=== PATIENT | male | born 1975 ===

== ENCOUNTER 2018-09-10 08:53 | Outpatient (CLI) | payer OTHER | END 2018-09-10 08:56 | disposition home or self-care (01) | LOC: SONOGRAMA 08:53 | DX: R10.30 Lower abdominal pain, unspecified (principal); M25.562 Pain in left knee; M25.561 Pain in right knee ==

== ENCOUNTER 2019-04-20 13:56 | Outpatient (CLI) | payer OTHER ==
[~2019-04-20] VITALS: Ht 172.7 cm; Wt 75.3 kg
[2019-04-20] MEDS ORDERED: CLONAZEPAM0.5 MG PO (15:37)
== END 2019-04-20 14:10 | disposition home or self-care (01) ==
LOC: OFIC 805 13:56
DX: S19.81XA Other specified injuries of larynx, initial encounter (principal); R49.0 Dysphonia

== ENCOUNTER 2019-06-10 11:01 | Outpatient (CLI) | payer OTHER ==
[~2019-06-10 11:01] MED LIST: CLONAZEPAM0.5 MG PO
== END 2019-06-10 17:00 | disposition home or self-care (01) ==
LOC: SONOGRAMA 11:01 → MAMO-SONO 14:45 → SONOGRAMA 17:00
DX: R31.1 Benign essential microscopic hematuria (principal)